=== PATIENT | male | born 1990 | race African-American/Black ===

== ENCOUNTER 2023-11-03 07:05 | Emergency (ER) | payer SELFPAY ==
[~2023-11-03] VITALS: Ht 190.5 cm; Wt 77.0 kg
[2023-11-03 08:04] VITALS: BP 143/94; PULSE 118; RESP 16; TEMP 97; O2SAT 100
[2023-11-03] MEDS ORDERED: HYDR-4798 PO (08:47)
[2023-11-03] MEDS ORDERED: CYCL-839 PO (08:47)
== END 2023-11-03 08:56 | disposition home or self-care (01) ==
LOC: ER 07:05
DX: M79.18 Myalgia, other site (principal); Z76.0 Encounter for issue of repeat prescription; Z88.8 Allergy status to other drugs, medicaments and biological substances; Z79.899 Other long term (current) drug therapy; V89.2XXA Person injured in unspecified motor-vehicle accident, traffic, initial encounter; Y93.89 Activity, other specified; Y92.89 Other specified places as the place of occurrence of the external cause; Y99.8 Other external cause status